=== PATIENT | male | born 1990 | race Caucasian/White ===

== ENCOUNTER 2024-03-01 16:28 | Emergency (ER) | payer MEDICAID | END 2024-03-01 18:42 | disposition home or self-care (01) | LOC: JP.ED 16:28 | DX: M25.532 Pain in left wrist (principal); F17.210 Nicotine dependence, cigarettes, uncomplicated; Z88.8 Allergy status to other drugs, medicaments and biological substances; Z88.6 Allergy status to analgesic agent | CPT/HCPCS: 73110-26-LT; 73110-LT; 99283 ==

== ENCOUNTER 2024-06-03 09:47 | Emergency (ER) | payer MEDICAID | END 2024-06-03 10:54 | disposition home or self-care (01) | LOC: JP.ED 09:47 | DX: G47.00 Insomnia, unspecified (principal); F17.210 Nicotine dependence, cigarettes, uncomplicated; Z86.16 Personal history of COVID-19; Z88.5 Allergy status to narcotic agent; Z88.8 Allergy status to other drugs, medicaments and biological substances; Z79.899 Other long term (current) drug therapy | CPT/HCPCS: 99283; 99284 ==

== ENCOUNTER 2024-07-21 13:31 | Emergency (ER) | payer MEDICAID ==
[2024-07-21] MEDS ORDERED: Sodium Chloride 0.9% 10 ML Syringe FLUSH PRN (16:27)
[2024-07-21] MEDS: Acetaminophen 1,000 MG in Premix Bag 1 BAG IV ONE (16:53)
[2024-07-21] MEDS: Sodium Chloride 0.9% 1,000 ML IV SCH (16:53)
[2024-07-21] MEDS: diphenhydrAMINE 50 MG/ML SDV IVPUSH ONE (16:55)
[2024-07-21] MEDS: Prochlorperazine 10 MG/2 ML SDV IVPUSH ONE (16:55)
[2024-07-21] MEDS: HYDROmorphone 1 MG/ML Syringe IVPUSH ONE (18:08)
== END 2024-07-21 19:18 | disposition home or self-care (01) ==
LOC: JP.ED 13:31
DX: G43.909 Migraine, unspecified, not intractable, without status migrainosus (principal); Z88.8 Allergy status to other drugs, medicaments and biological substances; Z88.5 Allergy status to narcotic agent; Z86.16 Personal history of COVID-19
CPT/HCPCS: 96361; 96365; 96375; 99283; 99283-25; J0131; J0780; J1171; J1200; J7030

== ENCOUNTER 2024-07-27 18:08 | Emergency (ER) | payer MEDICAID | END 2024-07-27 20:00 | disposition home or self-care (01) | LOC: JP.ED 18:08 | DX: G56.02 Carpal tunnel syndrome, left upper limb (principal); Z88.5 Allergy status to narcotic agent; Z88.8 Allergy status to other drugs, medicaments and biological substances; Z79.51 Long term (current) use of inhaled steroids; Z79.899 Other long term (current) drug therapy | CPT/HCPCS: 99283 ==

== ENCOUNTER 2024-09-29 19:22 | Emergency (ER) | payer MEDICAID ==
[2024-09-29] MEDS: droPERidol 5 MG/2 ML SDV IVPUSH ONE (20:32)
[2024-09-29] MEDS: Sodium Chloride 0.9% 1,000 ML IV SCH (20:32)
[2024-09-29] MEDS: diphenhydrAMINE 50 MG/ML SDV IVPUSH ONE (20:32)
[2024-09-29] MEDS: Acetaminophen 1,000 MG in Premix Bag 1 BAG IV ONE (20:32)
[2024-09-29] MEDS: Sodium Chloride 0.9% 10 ML Syringe FLUSH PRN (20:34)
[2024-09-29] MEDS: Ketorolac 30 MG/ML SDV IVPUSH ONE (21:01)
== END 2024-09-29 22:28 | disposition home or self-care (01) ==
LOC: JP.ED 19:22
DX: G43.909 Migraine, unspecified, not intractable, without status migrainosus (principal); F17.210 Nicotine dependence, cigarettes, uncomplicated; Z88.5 Allergy status to narcotic agent; Z88.6 Allergy status to analgesic agent; Z88.8 Allergy status to other drugs, medicaments and biological substances; Z79.899 Other long term (current) drug therapy
CPT/HCPCS: 96361; 96374; 96375; 99283; J0131; J1200; J1790; J7030

== ENCOUNTER 2024-11-08 07:14 | Emergency (ER) | payer MEDICAID ==
[2024-11-08] MEDS: LORazepam 1 MG Tab PO ONE (07:57)
== END 2024-11-08 08:02 | disposition home or self-care (01) ==
LOC: JP.ED 07:14
DX: G47.00 Insomnia, unspecified (principal); Z88.5 Allergy status to narcotic agent; Z88.8 Allergy status to other drugs, medicaments and biological substances
CPT/HCPCS: 99283; A9270

== ENCOUNTER 2024-11-08 16:49 | Emergency (ER) | payer MEDICAID ==
[2024-11-08] MEDS: Acetaminophen/HYDROcodone 325-5 MG Tab PO ONE (18:48)
== END 2024-11-08 18:55 | disposition home or self-care (01) ==
LOC: JP.ED 16:49
DX: G47.00 Insomnia, unspecified (principal); G89.29 Other chronic pain; F17.200 Nicotine dependence, unspecified, uncomplicated; Z88.5 Allergy status to narcotic agent; Z88.6 Allergy status to analgesic agent; Z88.8 Allergy status to other drugs, medicaments and biological substances; Z79.899 Other long term (current) drug therapy
CPT/HCPCS: 99283; A9270

== ENCOUNTER 2024-12-12 10:38 | Emergency (ER) | payer MEDICAID | END 2024-12-12 11:20 | disposition left against medical advice (07) | LOC: JP.ED 10:38 | DX: M62.830 Muscle spasm of back (principal); F17.200 Nicotine dependence, unspecified, uncomplicated; Z88.8 Allergy status to other drugs, medicaments and biological substances; Z88.5 Allergy status to narcotic agent; Z79.51 Long term (current) use of inhaled steroids; Z79.899 Other long term (current) drug therapy | CPT/HCPCS: 99283 ==

== ENCOUNTER 2025-03-30 19:58 | Emergency (ER) | payer MEDICAID | END 2025-03-30 21:45 | disposition left against medical advice (07) | LOC: JP.ED 19:58 | DX: M54.6 Pain in thoracic spine (principal); F17.200 Nicotine dependence, unspecified, uncomplicated; Z88.5 Allergy status to narcotic agent; Z88.8 Allergy status to other drugs, medicaments and biological substances; Z79.899 Other long term (current) drug therapy; W10.9XXA Fall (on) (from) unspecified stairs and steps, initial encounter; Y93.89 Activity, other specified | CPT/HCPCS: 72072; 99283 ==